=== PATIENT | male | born 1975 | race African-American/Black ===

== ENCOUNTER → 2016-08-09 | Day surgery (SDC) | payer OTHER ==
[~2016-08-09] VITALS: Ht 172.7 cm; Wt 73.9 kg
[~2016-08-09] MED LIST: ACETAMINOPHEN INTRAVENOUS 100 ML IV ONE; BUPIVACAINE-EPI 0.25%-1:200000 50 ML VIAL. ONE; CEFAZOLIN 2GM PREMIX 50 ML IV ONE; CEFAZOLIN 2GM PREMIX 50 ML IV PRN; DEXAMETHASONE SOD PHOS 20 MG/5 ML VIAL. ONE; FAMOTIDINE 20 MG/2 ML VIAL ONE; FENTANYL PF 100 MCG/2 ML VIAL. IV PRN; FENTANYL PF 100 MCG/2 ML VIAL. ONE; GLYCOPYRROLATE 1 MG/5 ML VIAL. ONE; HYDR-971 PO; HYDROCODONE/APAP 5/325MG TABLET. PO PRN; HYDROMORPHONE 2 MG/ML VIAL. IV PRN; KETOROLAC 30 MG/ML SYRINGE FOR OR. INJ ONE; LIDOCAINE 1% 1 ML SYRINGE. ID PRN; LIDOCAINE 2% 100 MG/5 ML DISP.SYRIN. ONE; LISI10TA2 PO; MIDAZOLAM HCL 2 MG/2 ML VIAL. ONE; MORPHINE SULFATE 2 MG/ML DISP.SYRIN. IV PRN; NEOSTIGMINE METHYLSULFATE 5 MG/5 ML SYRINGE. ONE; ONDANSETRON PF 4 MG/2 ML VIAL. IV PRN; ONDANSETRON PF 4 MG/2 ML VIAL. ONE; PROCHLORPERAZINE 10 MG/2 ML VIAL. IV PRN; PROPOFOL 20 ML IV ONE; ROCURONIUM 50 MG/5 ML VIAL. ONE; SEVOFLURANE 61 TO 120 MINUTES. IH ONE; VECURONIUM BOLUS 10 MG VIAL. IV ONE
[2016-08-09] MEDS: IV RINGERS,LACTATED 1000ML 1,000 ML IV SCH ×2 (09:35→13:02)
--- NOTE | 2016-08-09 12:07 | PDOC ---
BRIEF OPERATIVE NOTE Date: Aug 09, 2016 Pre-Op Diagnosis Bilateral Inguinal hernia Post-Op Diagnosis Same Procedure Performed Robotic assisted L/S Bilateral Inguinal hernia repair with mesh Surgeon Sid Anesthesia Type: General Blood Loss 10ml Specimens Obtained None Findings as above Complications None HAYDEE KEATING MD Aug 09, 2016 12:06
--- NOTE | 2016-08-09 12:08 | DISCH ---
DISCHARGE INSTRUCTIONS Condition on Discharge Condition on Discharge: Stable Activity After Discharge Activity Instructions for Disc: Avoid exertion Other activity instructions: No lifting >20lbs for 2 weeks Diet after Discharge Diet after Discharge: Regular Wound Incision Care Other wound/incision instructi: May shower in 24 hours Contacting the after DC Call your doctor for: If your condition worsens Follow-Up Follow up with: Dr Keating in 2 weeks HAYDEE KEATING MD Aug 09, 2016 12:08
[2016-08-09 14:05] VITALS: BP 181/92
--- NOTE | 2016-08-10 04:00 | OP ---
DATE OF SURGERY: 08/09/2016 PREOPERATIVE DIAGNOSIS: Bilateral inguinal hernias. POSTOPERATIVE DIAGNOSIS: Bilateral inguinal hernias. PROCEDURE: Robotic-assisted laparoscopic bilateral inguinal hernia repair with mesh. SURGEON: Titus Keating M.D. INDICATIONS: The patient is a 41-year-old gentleman who has complained of a painful bulge in his right groin which he has an obvious hernia. The left groin on exam showed a small hernia which he was unaware of. Procedure of robotic-assisted laparoscopic bilateral inguinal hernia repair was explained to the patient in detail. Risks, benefits were also discussed including bleeding, infection, injury to intra-abdominal contents, possibly necessitating further open operations. Alternatives of this procedure were also discussed with the patient who seemed to understand and gave verbal and written consent to have the procedure performed. DESCRIPTION OF PROCEDURE: The patient was taken to the operating room and placed in the supine position, general anesthesia was initiated. Once the patient was asleep and intubated, he was placed in low lithotomy. His abdomen was prepped and draped in usual sterile fashion using ChloraPrep. An area just above the umbilicus injected 0.25% Marcaine with epinephrine. Incision was made with an 11 blade scalpel and a Veress needle was placed within the abdomen. Pneumoperitoneum was achieved. Once this was completed, an 8.5 mm da Dave port was placed and the camera was placed within the abdomen. Abdomen was inspected. He had a large right inguinal hernia and a small left inguinal hernia. Two 8.5 mm ports were then placed under direct visualization, one in the mid left abdomen and one in the mid right abdomen under direct visualization. At this point, the da Dave robot was brought in and docked to all ports. At this point, the surgeon went to the surgical console. Using a grasper and EndoShears scissors, a window was propagated in the peritoneum. This was taken down on the right side below the hernia. The hernia sac was ____ and freed up from its adherent tissues completely. At this point, a ProGrip mesh was then placed over the hernia defect. This was secured in the place by the ____ and the peritoneum was closed with a running V-Loc suture. Similar way at the left side, peritoneum was taken down in a similar fashion and the hernia sac was freed up and retracted into the abdomen. Again, ProGrip mesh was placed over the hernia defect and the peritoneum was closed with running V-Loc suture. At this point, the pneumoperitoneum was reduced. All ports were removed, da Dave undocked and the port incisions closed with 4-0 subcuticular Monocryl. Mastisol, Steri-Strips, 4 x 4's and Medipore tape were applied as dressings. The patient was awakened, extubated in the operating room, taken to recovery in stable condition. All sponge, instrument counts listed as correct. Estimated blood loss 10 mL. TITUS KEATING MD DR: MISA/tiara JOB#: [id number] / [id number] MEREDITH Walter MD
== END | disposition home or self-care (01) ==
LOC: SURG 09:02
PROVIDERS: ATTEND Surgery
DX: K40.20 Bilateral inguinal hernia, without obstruction or gangrene, not specified as recurrent (principal); I10 Essential (primary) hypertension; K21.9 Gastro-esophageal reflux disease without esophagitis; F41.9 Anxiety disorder, unspecified; Z87.891 Personal history of nicotine dependence; F10.99 Alcohol use, unspecified with unspecified alcohol-induced disorder
CPT/HCPCS: 49650; C1781; J0131; J0690; J1100; J1885; J2250; J2405; J2704; J2710; J3010; J3490; J7120; S0028; S2900